=== PATIENT | female | born 1935 | race Caucasian/White ===

== ENCOUNTER 2019-02-19 23:01 | Observation (INO) | payer MEDICARE, OTHER ==
[~2019-02-19] VITALS: Ht 167.6 cm; Wt 76.7 kg
[~2019-02-19 23:01] MED LIST: ESCI10TA PO; FURO-572 PO; GABA300C PO; HYDR200T5 PO; LEVO0.2T5 PO; METO25TA PO; MULT-1749 PO; POTA20TE62 PO; TRAM50TA1 PO
--- NOTE | 2019-02-19 23:09 | NUR ---
PT IS WAITING IN [facility] TILL ROOM IS AVAILABLE. VSS
[2019-02-19 23:11] VITALS: BP 185/65
--- NOTE | 2019-02-19 23:22 | NUR ---
PT BIBA BLS TO ER BED 02
--- NOTE | 2019-02-19 23:30 | NUR ---
PT BIBA C/O DIZZINES AND BL LEG PAIN. PT STATES INTERMITTENT DIZZINESS X2 WEEKS, 10/10 SHARP BL LEG PAIN X2 DAYS. PT AMBULATED W/ ASSISTANCE BY CANE. +1 PITTING EDEMA BL LOWER LEGS; +REDNESS, +WARM TO TOUCH, +TENDERNESS; PEDIAL PULSES WNL BL. CAP REFIL <3. BREATHING EQUAL AND UNLABORED, LUNG SOUND CLEAR BL. PT ACTING APPROPRIATLY. PT IN GOWN, IN BED; BED IN LOWER LOCKED POSITION. ER MD AWARE OF PT STATUS. WILL CONTINUE TO MONITOR. PMH: ARTHRITIS, HTN, RLS RX: LOSARTAN, GABAPENTIN, TRAMADOL
[2019-02-19] MEDS ORDERED: AMPICILLIN/SULBACTAM 3 GM in NACL 0.9% 100 ML IV ONE (23:45)
--- NOTE | 2019-02-19 23:45 | NUR ---
LAB AT BEDSIDE.
[2019-02-20] MEDS ORDERED: AMPICILLIN/SULBACTAM 3 GM VIAL ONE
[2019-02-20 00:07] LABS: BASOPHILS # (AUTO) 0.1 K/uL (0.00-0.22); BASOPHILS % (AUTO) 1.3 % (0.0-2.0); EOSINOPHILS # (AUTO) 0.1 K/uL (0-0.4); EOSINOPHILS % (AUTO) 1.5 % (0.0-4.0); HEMATOCRIT 34.1 % (36-48); LYMPHOCYTES # (AUTO) 2.2 K/uL (2.5-16.5); LYMPHOCYTES % (AUTO) 33.4 % (20.5-51.1); MEAN CORPUSCULAR HEMOGLOBIN 29 pg (27-31); MEAN CORPUSCULAR HGB CONC 32 g/dL (33-37); MEAN CORPUSCULAR VOLUME 89.2 fL (80-94); MONOCYTES # (AUTO) 0.6 K/uL (0.8-1.0); MONOCYTES % (AUTO) 8.6 % (1.7-9.3); NEUTROPHILS # (AUTO) 3.7 K/uL (1.8-7.7); NEUTROPHILS % (AUTO) 55.2 % (42.2-75.2); PLATELET COUNT (AUTO) 109 K/uL (140-450); RED BLOOD CELL COUNT(AUTO) 3.82 MIL/uL (4.20-5.40); RED CELL DISTRIBUTION WIDTH 15.6 % (11.6-13.7); WHITE BLOOD COUNT (AUTO) 6.7 K/uL (4.8-10.8)
[2019-02-20 00:21] LABS: ANION GAP 12.1 (8-16); CARBON DIOXIDE 27.1 mmol/L (21-32); CHLORIDE 109 mmol/L (98-107); CREATININE 1.1 mg/dL (0.6-1.3); GLUCOSE 104 mg/dL (74-106); POTASSIUM 3.2 mmol/L (3.5-5.1); SODIUM SERUM 145 mmol/L (136-145); UREA NITROGEN, BLOOD 21 mg/dL (7-18)
[2019-02-20 00:27] LABS: ALBUMIN 3.5 g/dL (3.4-5.0); ASPARTATE AMINOTRANSFERASE 18 U/L (15-37); TOTAL BILIRUBIN 0.4 mg/dL (0.0-1.0)
[2019-02-20 00:34] LABS: PROTHROMBIN TIME 9.9 secs (10.8-13.4)
--- NOTE | 2019-02-20 01:03 | NUR ---
PT AMBULATED BY CANE W/ FAMILY AT SIDE TO BR.
--- NOTE | 2019-02-20 01:10 | NUR ---
X-RAY AT BEDSIDE.
[2019-02-20 01:22] LABS: APPEARANCE,URINE SL CLOUDY (CLEAR); BILIRUBIN,URINE NEGATIVE (NEGATIVE); BLOOD, URINE 1+ (NEGATIVE); COLOR,URINE YELLOW (YELLOW); LEUKOCYTE ESTERASE ,URINE 1+ (NEGATIVE); NITRITE, URINE NEGATIVE (NEGATIVE); UGLUCOSE NEGATIVE (NEGATIVE)
[2019-02-20] MEDS ORDERED: LEVOFLOXACIN 750 MG/D5W PREMIX 150 ML IV ONE (01:30)
[2019-02-20 01:50] LABS: WBC,URINE 20-60 /HPF (0-5)
--- NOTE | 2019-02-20 01:50 | NUR ---
COMFORT MEASURES PROVIDED, DAUGHTER AT BEDSIDE.
--- NOTE | 2019-02-20 02:50 | NUR ---
PT AMBULATED BY CANE W/ FAMILY AT SIDE TO BR.
--- NOTE | 2019-02-20 02:59 | NUR ---
COMFORT MEASURES PROVIDED; SAFETY PRECAUTIONS IN PLACE.
[2019-02-20] MEDS ORDERED: hydrALAZINE 20 MG/ML VIAL IVP ONE (03:05)
[2019-02-20] MEDS ORDERED: ENALAPRILAT 2.5 MG/2 ML VIAL IVP ONE (03:05)
[2019-02-20] MEDS ORDERED: LACTATED RINGERS 1,000 ML IV SCH (04:53)
[2019-02-20] MEDS ORDERED: ALBUTEROL 0.083% 2.5 MG/3 ML NEBU INH PRN (04:55)
[2019-02-20] MEDS ORDERED: ONDANSETRON 4 MG/2 ML VIAL IVP PRN (04:55)
[2019-02-20] MEDS ORDERED: ACETAMINOPHEN 325 MG TAB PO PRN (04:55)
[2019-02-20 06:00] VITALS: BP 129/96
--- NOTE | 2019-02-20 06:00 | NUR ---
PT ARRIVED AT UNIT VIA GURNEY, ASSIST PT TO AMBULATE TO BED, TOLERATED WELL, RECEIVED BEDSIDE REPORT FROM ED NURSE JODIE RN, PT STABLE, NO DISTRESS NOTED, IV TO L WRIST 18G, PATENT, INTACT, PT ON ROOM AIR, NO SOB, OREINT PT TO BED, CALL LIGHT, ROOM, PT STATED UNDERSTANDING, MRSA SWAB TAKEN, INITIAL ASSESSMENT DONE, ALL SAFETY PRECAUTION MET, CALL LIGHT WITHIN REACH, WILL CONTINUE TO MONITOR.
--- NOTE | 2019-02-20 06:05 | NUR ---
Patient will be admitted to care of Dr. Looney. Admited to Med-Surg. Patient wentto room 108-B via rcamargo by RN. Belongings list completed. Report to LY Rhodes; VSS, patient acting appropriatly.
[2019-02-20] MEDS ORDERED: cefTRIAXone 1,000 MG VIAL ONE (06:30)
--- NOTE | 2019-02-20 06:39 | NUR ---
IV ABX ROCEPHIN STARTED PER MD ORDER, PT TOLERATED WELL, NO DISTRESS NOTED, CALL LIGHT WITHIN REACH, WILL CONTINUE TO MONITOR.
--- NOTE | 2019-02-20 07:28 | NUR ---
ENDORSED PT TO DAY SHIFT NURSE LAURIE RN, PT STABLE, NO DISTRESS NOTED, CALL LIGHT WITHIN REACH.
--- NOTE | 2019-02-20 07:30 | NUR ---
RECEIVED HANDOFF REPORT FROM INFERTILITY MEDICAL ASSISTANT NURSE. PT IS ASLEEP IN BED. ALL SAFETY MEASURES ARE IN PLACE. WILL CONTINUE TO MONITOR.
--- NOTE | 2019-02-20 08:23 | NUR ---
PATIENT HAS BEEN SCREENED AND CATEGORIZED MODERATE NUTRITION RISK. PATIENT WILL BE SEEN WITHIN 3-5 DAYS OF ADMISSION. 02/23/19DIANE [address]RI[address]
--- NOTE | 2019-02-20 09:30 | NUR ---
SPOKE WITH PATIENTS DAUGHTER ON THE PHONE. PATIENT SPOKE WITH DAUGHTER WELL.
[2019-02-20] MEDS ORDERED: FUROSEMIDE 20 MG TAB PO SCH (11:30)
[2019-02-20] MEDS ORDERED: POTASSIUM CHLORIDE 20% 40 MEQ/15 ML UDC PO SCH (11:30)
--- NOTE | 2019-02-20 11:30 | NUR ---
FREQUENT ROUNDING ON PT. PT IS ASLEEP IN BED. NOTABLE CHEST RISE AND FALL. PT APPEARS STABLE AND NO SIGNS OF DISTRESS, ALL SAFETY MEASURES ARE IN PLACE AND WILL CONTINUE TO MONITOR.
--- NOTE | 2019-02-20 13:30 | NUR ---
FREQUENT ROUNDING ON PT. PT IS ASLEEP IN BED. NOTABLE CHEST RISE AND FALL. PT APPEARS IN NO APPARENT DISTRESS, ALL SAFETY MEASURES ARE IN PLACE, WILL CONTINUE TO MONITOR.
--- NOTE | 2019-02-20 18:41 | NUR ---
FREQUENT ROUNDING ON PT. PT IS SITTING UP IN BED EATING DINNER. IV IS INFUSING WITH NO SIGNS OF INFILTRATION. PT IS STABLE AND APPEARS IN NO APPARENT DISTRESS. ALL SAFETY MEASURES ARE IN PLACE.
--- NOTE | 2019-02-20 19:27 | NUR ---
ENDORSED NIGHTSHIFT NURSE AT PT BEDSIDE. PT IS ASLEEP IN BED WITH NOTABLE CHEST RISE AND FALL. PT APPEARS STABLE AND NO APPARENT DISTRESS.
--- NOTE | 2019-02-20 19:28 | NUR ---
RECEIVED BEDSIDE REPORT FROM AM SHIFT,AWAKE, ALERT,O X 4. PT WEAK UNABLE TO AMBULATE NO DISTRESS RESPIRATORY DISTRESS NOTED, IV TO L WRIST 18G, PATENT, INTACT, PT ON ROOM AIR, CALL LIGHT, ROOM, PT STATED UNDERSTANDING, FALL RISK PRECAUTION INITIATED. CALL LIGHT WITHIN REACH, WILL CONTINUE TO MONITOR.
[2019-02-20] MEDS: traMADol 50 MG TAB PO SCH (20:26)
[2019-02-20] MEDS: GABAPENTIN 300 MG CAP PO SCH (20:26)
--- NOTE | 2019-02-20 20:26 | NUR ---
PT ABLE TO SWALLOW MEDS, TOLERATE WELL. PT CAN FOLLOW COMMANDS.
--- NOTE | 2019-02-20 20:30 | NUR ---
CHANGED PT VOIDED 1 X, BED REST AT THIS TIME. TURNED PT TO HER SIDE.
[2019-02-21] VITALS: BP 129/51
--- NOTE | 2019-02-21 03:00 | NUR ---
PT SLEEPING. NO COMPLAINTS AT THIS TIME
--- NOTE | 2019-02-21 06:56 | NUR ---
PT AWAKE, IN BED. PT IN STABLE CONDITION, WILL ENDORSE FOR CONTINUITY OF CARE
--- NOTE | 2019-02-21 07:15 | NUR ---
RECEIVED PT FROM MEDICAL CASE MANAGER NURSEJASE, PT IS AWAKE AND LYING ON THE BED, SIDE RAILS ARE UP AND CALL LIGHT WITHIN REACH, FALL AND SAFETY PRECAUTION ENFORCED, PT IS A0X4, DENIES PAIN AND HAS AN IV LINE ON THE LEFT WRIST G.18 ON SALINE LOCK, NO SIGN OF DISTRESS NOTED AND WILL CONTINUE TO MONITOR PT.
[2019-02-21 07:24] LABS: ANION GAP 12.2 (8-16); CARBON DIOXIDE 31.3 mmol/L (21-32); CHLORIDE 106 mmol/L (98-107); GLUCOSE 96 mg/dL (74-106); POTASSIUM 3.5 mmol/L (3.5-5.1); SODIUM SERUM 146 mmol/L (136-145); UREA NITROGEN, BLOOD 17 mg/dL (7-18)
[2019-02-21 07:25] LABS: ALBUMIN 2.7 g/dL (3.4-5.0); ASPARTATE AMINOTRANSFERASE 15 U/L (15-37); TOTAL BILIRUBIN 0.4 mg/dL (0.0-1.0)
[2019-02-21 07:26] LABS: MAGNESIUM 1.5 mg/dL (1.8-2.4)
[2019-02-21 08:00] VITALS: BP 177/56
--- NOTE | 2019-02-21 08:20 | NUR ---
PT'S VITAL SIGNS WAS TAKEN AND BP RESULT IS 177/56, PULSE IS 64, O2 SATURATION IS 96%, TEMPERATURE IS 97.4 AND RESPIRATION IS 18/MIN, NO SIGN OF DISTRESS NOTED, PT DENIES ANY PAIN NOW. WILL CONTINUE TO MONITOR PT.
--- NOTE | 2019-02-21 08:30 | NUR ---
PAGED DR. DUNCAN TO INFORM REGARDING PT'S MG LEVEL OF 1.5 AND BP RESULT OF 177/56, PULSE IS 96, O SATURATION IS 96%, AWAITING MD CALL BACK .
--- NOTE | 2019-02-21 08:40 | NUR ---
RECEIVED A CALL BACK FROM DR. DUNCAN AND MADE A TELEPHONE ORDER OF AMLODIPINE 10MG DAILY, GIVE FIRST DOSE NOW AND 4GM MAGNESIUM SULFATE IVX1 DOSE NOW, ORDER READ BACK AND VERIFIED. WILL CARRY OUT ORDER.
[2019-02-21 08:48] LABS: BASOPHILS % (AUTO) 0.9 % (0.0-2.0); EOSINOPHILS # (AUTO) 0.1 K/uL (0-0.4); EOSINOPHILS % (AUTO) 1.5 % (0.0-4.0); HEMATOCRIT 32.8 % (36-48); HEMOGLOBIN 10.8 g/dL (12.0-16.0); LYMPHOCYTES # (AUTO) 1.9 K/uL (2.5-16.5); LYMPHOCYTES % (AUTO) 33.9 % (20.5-51.1); MEAN CORPUSCULAR HEMOGLOBIN 29 pg (27-31); MEAN CORPUSCULAR VOLUME 88.8 fL (80-94); MONOCYTES # (AUTO) 0.5 K/uL (0.8-1.0); MONOCYTES % (AUTO) 9.2 % (1.7-9.3); NEUTROPHILS % (AUTO) 54.5 % (42.2-75.2); PLATELET COUNT (AUTO) 138 K/uL (140-450); RED CELL DISTRIBUTION WIDTH 15.5 % (11.6-13.7); WHITE BLOOD COUNT (AUTO) 5.5 K/uL (4.8-10.8)
[2019-02-21] MEDS ORDERED: FUROSEMIDE 20 MG TAB PO SCH (09:00)
[2019-02-21] MEDS ORDERED: amLODIPine 5 MG TAB PO SCH (09:00)
[2019-02-21] MEDS ORDERED: ESCITALOPRAM 20 MG TAB PO SCH (09:00)
[2019-02-21] MEDS ORDERED: METOPROLOL 25 MG TAB PO SCH (09:00)
[2019-02-21] MEDS ORDERED: HYDROXYCHLOROQUINE 200 MG TAB PO SCH (09:00)
[2019-02-21] MEDS ORDERED: LEVOTHYROXINE 0.1 MG TAB PO SCH (09:00)
[2019-02-21] MEDS ORDERED: POTASSIUM CHLORIDE 10 MEQ TABER PO SCH (09:00)
[2019-02-21 09:03] LABS: MEAN CORPUSCULAR HGB CONC 33 g/dL (33-37)
[2019-02-21] MEDS: traMADol 50 MG TAB PO SCH (09:04)
[2019-02-21] MEDS: GABAPENTIN 300 MG CAP PO SCH (09:17)
[2019-02-21] MEDS: MAG SULF 2000 MG/WATER PREMIX 50 ML IV SCH ×2 (09:19→12:09)
--- NOTE | 2019-02-21 09:25 | NUR ---
PT IS AWAKE AND IS SEATED ON NT BED, VITAL SIGNS CHECKED AND BP IS 169/50, PULSE IS 66, ORAL AND IV MEDICATIONS WERE GIVEN AND PT TOLERATED IT, NO SIGN OF DISTRESS NOTED AND WILL MONITOR PT.
[2019-02-21] MEDS ORDERED: CEPH250C16 PO (09:41)
[2019-02-21] MEDS ORDERED: AMLO10TA PO (09:41)
--- NOTE | 2019-02-21 10:30 | NUR ---
PT'S BP WAS RECHECKED RESULT IS 158/52, PULSE IS 63. PT DENIES PAIN AND NO SIG OF DISTRESS NOTED. WILL MONITOR PT.
--- NOTE | 2019-02-21 12:11 | NUR ---
PT IS AWAKE AND THE SECOND BAG OF MAGNESIUM SULFATE WAS ADMINISTERED VIA IVPB, PT DENIES PAIN AND NO SIGN OF DISTRESS NOTED. WILL MONITOR PT.
--- NOTE | 2019-02-21 12:27 | NUR ---
Blanchard Grinder Operator Note: I called patient's daughter Vane Baptiste to obtain information about patient , no answer, left message.
[2019-02-21 16:00] VITALS: BP 142/52
--- NOTE | 2019-02-21 16:18 | NUR ---
SPOKE TO DR. DUNCAN AND WAS INFORMED THAT PT WILL BE NEEDING PT REHABILITATION AND THAT OFFICE MACHINE SERVICER APPRENTICE, CAIT WAS MADE AWARE OF PT'S FRONT WHEEL WALKER TO AID IN THE AMBULATION OF THE PT AND WILL COORDINATE WITH THE INSURANCE WELL. DR. DUNCAN AGREED AND SAID THAT PT IS OK TO STILL BE DISCHARGE TODAY.
--- NOTE | 2019-02-21 18:35 | NUR ---
DISCHARGED PT VIA WHEELCHAIR WITH DAUGHTER, TEACHING AND INSTRUCTIONS GIVEN AND PT VERBALIZED UNDERSTANDING, VITAL SIGNS CHECKED AND IS WITHIN NORMAL LIMIT, IV LINE AND ARM BAND REMOVED. PT DENIES ANY PAIN AND IS STABLE THIS TIME
== END 2019-02-21 18:35 | disposition home health service (06) ==
LOC: MED 23:01 → MTU 02-20 04:58
PROVIDERS: ADMIT Internal Medicine Pulmonary Disease; ATTEND Internal Medicine Pulmonary Disease
DX: N39.0 Urinary tract infection, site not specified (principal); J18.9 Pneumonia, unspecified organism; E03.9 Hypothyroidism, unspecified; I25.10 Atherosclerotic heart disease of native coronary artery without angina pectoris; I50.9 Heart failure, unspecified; G62.9 Polyneuropathy, unspecified; I87.8 Other specified disorders of veins; R53.81 Other malaise; Z86.73 Personal history of transient ischemic attack (TIA), and cerebral infarction without residual deficits
CPT/HCPCS: 36415; 36600; 71045; 80053; 81001; 82803; 83605; 83735; 85025; 85610; 85730; 87040; 87081; 87086; 93970; 96365; 96366; 96367; 96375; 97116; 97162; 99285; G0378; J0295; J0360; J0696; J1956; J3475; J3490; J7030; J7060; Q0092; 93005

== ENCOUNTER 2019-07-27 12:15 | Emergency (ER) | payer MEDICARE, OTHER ==
[~2019-07-27] VITALS: Ht 160 cm; Wt 66.7 kg
[~2019-07-27 12:15] MED LIST changes: +AMLO10TA PO; +CEPH250C16 PO
[2019-07-27 12:35] VITALS: BP 141/56
--- NOTE | 2019-07-27 12:35 | NUR ---
PT AMBULATED WITH ASSISTANCE TO BED 8 TRIAGED AT BEDSIDE.
[2019-07-27] MEDS ORDERED: GABA400C PO (12:45)
[2019-07-27] MEDS ORDERED: LOSA50TA57 PO (12:45)
[2019-07-27] MEDS ORDERED: TRAM50TA1 PO (12:45)
[2019-07-27] MEDS ORDERED: VITD1000 PO (12:45)
[2019-07-27] MEDS ORDERED: MECL-272 PO (12:45)
[2019-07-27] MEDS ORDERED: ASPI-1718 PO (12:45)
[2019-07-27] MEDS ORDERED: ESOM20EC PO (12:46)
--- NOTE | 2019-07-27 12:47 | NUR ---
PT TAKEN TO CT VIA RBIPIN.
[2019-07-27] MEDS ORDERED: NACL 0.9% 500 ML IV SCH (13:44)
--- NOTE | 2019-07-27 14:37 | NUR ---
BIB DAUGHTER C/O DIARRHEA AND WEAKNESS STARTING LAST NIGHT APPROXIMATELY 12 EPISODES; PT DENIES ANY ABD PAIN, DENIES FEVER OR CHILLS, DENIES N/V. PT STATES HAD DALL YESTERDAY AT HOME WHILE USING RESTROOM, HAS BRUISE OF LFT FOREHEAD. WITHDRAWL TO TOUCH. PT HAS GENERALISED WEAKNESS DUE TO DIARRHEA AT THIS TIME. PT AAOX4, ABLE TO MAKE HER NEEDS KNOW. [facility]. HX LUPUS, HTN
[2019-07-27 14:41] LABS: BASOPHILS # (AUTO) 0.1 K/uL (0.00-0.22); BASOPHILS % (AUTO) 0.6 % (0.0-2.0); EOSINOPHILS % (AUTO) 0.1 % (0.0-4.0); HEMATOCRIT 31.9 % (36-48); HEMOGLOBIN 10.4 g/dL (12.0-16.0); LYMPHOCYTES # (AUTO) 1.1 K/uL (2.5-16.5); LYMPHOCYTES % (AUTO) 7.4 % (20.5-51.1); MEAN CORPUSCULAR HEMOGLOBIN 30 pg (27-31); MEAN CORPUSCULAR HGB CONC 33 g/dL (33-37); MEAN CORPUSCULAR VOLUME 92.1 fL (80-94); MONOCYTES # (AUTO) 0.5 K/uL (0.8-1.0); MONOCYTES % (AUTO) 3.3 % (1.7-9.3); NEUTROPHILS # (AUTO) 13.2 K/uL (1.8-7.7); NEUTROPHILS % (AUTO) 88.6 % (42.2-75.2); PLATELET COUNT (AUTO) 143 K/uL (140-450); RED BLOOD CELL COUNT(AUTO) 3.46 MIL/uL (4.20-5.40); RED CELL DISTRIBUTION WIDTH 14.9 % (11.6-13.7); WHITE BLOOD COUNT (AUTO) 14.9 K/uL (4.8-10.8)
[2019-07-27 15:24] LABS: CARBON DIOXIDE 26.5 mmol/L (21-32); CHLORIDE 102 mmol/L (98-107); GLUCOSE 114 mg/dL (74-106); POTASSIUM 3.5 mmol/L (3.5-5.1); SODIUM SERUM 139 mmol/L (136-145)
[2019-07-27 15:25] LABS: ALBUMIN 3.1 g/dL (3.4-5.0); ASPARTATE AMINOTRANSFERASE 27 U/L (15-37); CREATININE 1.5 mg/dL (0.6-1.3); TOTAL BILIRUBIN 1.4 mg/dL (0.0-1.0); UREA NITROGEN, BLOOD 26 mg/dL (7-18)
[2019-07-27 15:38] LABS: APPEARANCE,URINE HAZY (CLEAR); BILIRUBIN,URINE 1+ (NEGATIVE); BLOOD, URINE 2+ (NEGATIVE); COLOR,URINE YELLOW (YELLOW); LEUKOCYTE ESTERASE ,URINE 1+ (NEGATIVE); NITRITE, URINE NEGATIVE (NEGATIVE); UGLUCOSE NEGATIVE (NEGATIVE)
[2019-07-27] MEDS ORDERED: LEVOFLOXACIN 500 MG/D5W PREMIX 100 ML IV ONE (16:15)
--- NOTE | 2019-07-27 16:23 | NUR ---
[facility] AND GAVE REPORT TO LY HENRIQUEZ. PH# [phone] EXT [id number] ETA 1645 TO 1700
--- NOTE | 2019-07-27 16:52 | NUR ---
Patient to be transferred to [facility]. Is being transferred due to INSURANCE REQUEST. Receiving facility has accepting physician and available space. ER physician has signed transfer form. Patient or responsible constitution party has agreed to transfer and signed form. Patient belongings inventoried and will be sent with patient. Copy of nursing notes, lab reports, EKG, Physicians Orders and X-rays to be sent with patient. Report called to LY HENRIQUEZ at receiving facility. [facility] ambulance service has been called for transfer. ETA is 1700.
--- NOTE | 2019-07-27 16:52 | NUR ---
PT PICKED UP BY [facility]. PT TRANSFERED TO [facility]. TEM 100.0. MADE AWARE. [facility] TO TRANSFER. PT GETTING LAVAQUIN 100ML/HR , SENT WITH [facility]. PT AAOX4, PT STABLE.
[2019-07-27 16:59] VITALS: BP 151/56
== END 2019-07-27 16:52 | disposition short-term general hospital (02) ==
LOC: MED 12:15
DX: K52.9 Noninfective gastroenteritis and colitis, unspecified (principal); D72.829 Elevated white blood cell count, unspecified; I50.9 Heart failure, unspecified; N28.9 Disorder of kidney and ureter, unspecified; S00.83XA Contusion of other part of head, initial encounter; Z79.899 Other long term (current) drug therapy; Z79.82 Long term (current) use of aspirin; Z88.8 Allergy status to other drugs, medicaments and biological substances; W22.8XXA Striking against or struck by other objects, initial encounter; Y93.89 Activity, other specified; Y92.89 Other specified places as the place of occurrence of the external cause; Y99.8 Other external cause status
CPT/HCPCS: 36415; 71045; 74176; 80053; 81001; 81025; 83605; 83880; 84484; 85025; 85610; 85730; 87040; 87086; 93005; 96361; 96365; 99285; J1956; J7030; Q0092

== ENCOUNTER 2019-08-22 19:29 | Emergency (ER) | payer MEDICARE, OTHER ==
[~2019-08-22] VITALS: Ht 170.2 cm; Wt 67.1 kg
[~2019-08-22 19:29] MED LIST changes: -AMLO10TA PO; +ASPI-1718 PO; -CEPH250C16 PO; -ESCI10TA PO; +ESOM20EC PO; -FURO-572 PO; -GABA300C PO; +GABA400C PO; -HYDR200T5 PO; -LEVO0.2T5 PO; +LOSA50TA57 PO; +MECL-272 PO; -METO25TA PO; -MULT-1749 PO; -POTA20TE62 PO; +VITD1000 PO
[2019-08-22 19:32] VITALS: BP 145/66
--- NOTE | 2019-08-22 19:44 | NUR ---
PT TAKEN TO BED 12 VIA WC. DAUGHTER ACCOMPANIED.
--- NOTE | 2019-08-22 19:51 | NUR ---
84 Y.O FEMALE BIB DAUGHTER C/O DIARRHEA X 5-6/DAY X 4 DAYS. DENIES NV. LOWER ABDOMINAL PAIN STARTED TODAY. DAUGHTER REPORTS ZERO APPETITE. PT HYDRATING WITH WATER. PT REPORTS CHILLS THIS MORNING. A/OX4 AND FOLLOWS COMMANDS; BREATHING UNLABORED AND EVEN. GI- PATIENT STATES " I HAVE BEEN HAVING DIARRHEA AND MY PAIN IS 8/10 SHARP ". WATERY, LOOSE STOOL. LOWER ABDOMINAL PAIN. NO BLOOD IN DIARRHEA AND NO DYSURIA. MILD TENDERNESS UPON PALPATION. BOWEL SOUNDS ACTIVE. PATIENT WAS ADMITTED TO [facility] WEEKS [facility]. AND WAS GIVEN ANTIBIOTICS AND STATES SHE IS UNAWARE OF THE NAME OF THE ANTIBIOTICS. PATIENT DOES NOT KNOW IS SHE HAS HAD A HISTORY OF COLITIS. ERMD MADE AWARE OF STATUS. PLACED ON MONITOR. DAUGHTER AT BEDSIDE. PMH-- HTN, LUPUS, CAD ALLERGIES-MORPHINE
--- NOTE | 2019-08-22 19:51 | NUR ---
Dr. Duran examining patient.
--- NOTE | 2019-08-22 19:52 | NUR ---
ERMD AT BEDSIDE.
[2019-08-22] MEDS ORDERED: NACL 0.9% 1,000 ML IV SCH (20:03)
--- NOTE | 2019-08-22 20:09 | NUR ---
PT. HAD A BOWEL MOVEMENT: LOOSE, BROWN STOOLS X1.
--- NOTE | 2019-08-22 20:15 | NUR ---
PATIENT TAKEN TO CT.
--- NOTE | 2019-08-22 20:33 | NUR ---
PT RETURN FROM CT
[2019-08-22 20:57] LABS: BASOPHILS # (AUTO) 0.1 K/uL (0.00-0.22); BASOPHILS % (AUTO) 0.9 % (0.0-2.0); EOSINOPHILS # (AUTO) 0.1 K/uL (0-0.4); EOSINOPHILS % (AUTO) 1.8 % (0.0-4.0); HEMATOCRIT 29.9 % (36-48); LYMPHOCYTES # (AUTO) 1.1 K/uL (2.5-16.5); LYMPHOCYTES % (AUTO) 17.2 % (20.5-51.1); MEAN CORPUSCULAR HEMOGLOBIN 34 pg (27-31); MEAN CORPUSCULAR HGB CONC 33 g/dL (33-37); MEAN CORPUSCULAR VOLUME 100.4 fL (80-94); MONOCYTES # (AUTO) 0.8 K/uL (0.8-1.0); MONOCYTES % (AUTO) 12.2 % (1.7-9.3); NEUTROPHILS # (AUTO) 4.3 K/uL (1.8-7.7); NEUTROPHILS % (AUTO) 67.9 % (42.2-75.2); PLATELET COUNT (AUTO) 134 K/uL (140-450); RED BLOOD CELL COUNT(AUTO) 2.98 MIL/uL (4.20-5.40); RED CELL DISTRIBUTION WIDTH 15.3 % (11.6-13.7); WHITE BLOOD COUNT (AUTO) 6.3 K/uL (4.8-10.8)
[2019-08-22 21:19] LABS: ANION GAP 13.2 (8-16); CARBON DIOXIDE 28.5 mmol/L (21-32); CHLORIDE 102 mmol/L (98-107); CREATININE 1.2 mg/dL (0.6-1.3); GLUCOSE 94 mg/dL (74-106); POTASSIUM 3.7 mmol/L (3.5-5.1); SODIUM SERUM 140 mmol/L (136-145); UREA NITROGEN, BLOOD 19 mg/dL (7-18)
[2019-08-22 21:20] LABS: ALBUMIN 2.9 g/dL (3.4-5.0); AMYLASE 47 U/L (25-115); ASPARTATE AMINOTRANSFERASE 17 U/L (15-37); LIPASE 46 U/L (73-393); TOTAL BILIRUBIN 1.2 mg/dL (0.0-1.0)
[2019-08-22] MEDS ORDERED: metroNIDAZOLE 250 MG TAB PO ONE (23:25)
[2019-08-22 23:26] LABS: APPEARANCE,URINE CLEAR (CLEAR); BILIRUBIN,URINE NEGATIVE (NEGATIVE); BLOOD, URINE TRACE-L (NEGATIVE); COLOR,URINE YELLOW (YELLOW); LEUKOCYTE ESTERASE ,URINE TRACE (NEGATIVE); NITRITE, URINE NEGATIVE (NEGATIVE); UGLUCOSE NEGATIVE (NEGATIVE)
--- NOTE | 2019-08-22 23:36 | NUR ---
PATIENT IS SLEEPING; NO DISTRESS NOTED. DAUGHTER AT BEDSIDE.
--- NOTE | 2019-08-23 00:48 | NUR ---
Patient discharged with v/s stable. Written and verbal after care instructions given and explained. Patient alert, oriented and verbalized understanding of instructions. Ambulatory with steady gait. All questions addressed prior to discharge. ID band removed. Patient advised to follow up with PMD. Rx of FLAGYL 500MG given. Patient educated on indication of medication including possible reaction and side effects. Opportunity to ask questions provided and answered.
[2019-08-23 00:59] VITALS: BP 138/70
[2019-08-23 05:08] LABS: RBC,URINE 0-5 /HPF (0-5)
== END 2019-08-23 00:48 | disposition home or self-care (01) ==
LOC: MED 19:29
DX: K52.9 Noninfective gastroenteritis and colitis, unspecified (principal); I11.0 Hypertensive heart disease with heart failure; I50.9 Heart failure, unspecified; I25.10 Atherosclerotic heart disease of native coronary artery without angina pectoris; Z90.49 Acquired absence of other specified parts of digestive tract; Z90.710 Acquired absence of both cervix and uterus; Z79.899 Other long term (current) drug therapy; Z79.1 Long term (current) use of non-steroidal anti-inflammatories (NSAID); Z88.5 Allergy status to narcotic agent
CPT/HCPCS: 36415; 74176; 80053; 81001; 82150; 83690; 85025; 87070; 87086; 96360; 99284; J7030

== ENCOUNTER 2019-11-27 19:00 | Emergency (ER) | payer OTHER ==
[~2019-11-27] VITALS: Ht 167.6 cm; Wt 60.8 kg
[2019-11-27 19:25] VITALS: BP 200/60
[2019-11-27 22:06] LABS: EOSINOPHILS # (AUTO) 0.1 K/uL (0-0.4); EOSINOPHILS % (AUTO) 2.1 % (0.0-4.0); HEMATOCRIT 29.4 % (36-48); HEMOGLOBIN 9.6 g/dL (12.0-16.0); LYMPHOCYTES % (AUTO) 48.8 % (20.5-51.1); MEAN CORPUSCULAR HEMOGLOBIN 30 pg (27-31); MEAN CORPUSCULAR HGB CONC 33 g/dL (33-37); MEAN CORPUSCULAR VOLUME 89.7 fL (80-94); MONOCYTES # (AUTO) 0.4 K/uL (0.8-1.0); MONOCYTES % (AUTO) 8.8 % (1.7-9.3); NEUTROPHILS # (AUTO) 1.6 K/uL (1.8-7.7); NEUTROPHILS % (AUTO) 39.3 % (42.2-75.2); PLATELET COUNT (AUTO) 63 K/uL (140-450); RED BLOOD CELL COUNT(AUTO) 3.27 MIL/uL (4.20-5.40); RED CELL DISTRIBUTION WIDTH 14.8 % (11.6-13.7); WHITE BLOOD COUNT (AUTO) 4.1 K/uL (4.8-10.8)
[2019-11-27 23:03] LABS: ANION GAP 10.9 (8-16); CARBON DIOXIDE 32.7 mmol/L (21-32); CHLORIDE 108 mmol/L (98-107); CREATININE 1.1 mg/dL (0.6-1.3); GLUCOSE 130 mg/dL (74-106); POTASSIUM 3.6 mmol/L (3.5-5.1); SODIUM SERUM 148 mmol/L (136-145); UREA NITROGEN, BLOOD 25 mg/dL (7-18)
[2019-11-28] MEDS: LOSARTAN 25 MG TAB PO SCH (00:41)
[2019-11-28 01:04] VITALS: BP 183/47
[2019-11-28] MEDS ORDERED: LOSARTAN 50 MG TAB PO SCH (09:00)
== END 2019-11-28 00:53 | disposition home or self-care (01) ==
LOC: MED 19:00
DX: I10 Essential (primary) hypertension (principal); Z86.79 Personal history of other diseases of the circulatory system; Z88.5 Allergy status to narcotic agent; Z79.899 Other long term (current) drug therapy; Z90.49 Acquired absence of other specified parts of digestive tract
CPT/HCPCS: 36415; 71045; 80048; 84484; 85025; 93005; 99284; Q0092